=== PATIENT | female | born 1940 | race Caucasian/White ===

== ENCOUNTER 2016-08-06 20:16 | Emergency (ER) ==
[2016-08-06 20:26] VITALS: TEMP 100.4; BMI 28.0
[2016-08-06] MEDS ORDERED: MORPHINE 2 MG/ML SYRINGE IM STA (20:45)
[2016-08-06] MEDS ORDERED: ZOFRAN 4 MG/2 ML IM STA (20:45)
--- NOTE | 2016-08-06 21:40 | CT ---
EXAM: CT of the pelvis without contrast. HISTORY: Left hip pain for 1 week. No known injury. PROCEDURE: Contiguous axial CT images of the pelvis without contrast with coronal and sagittal refo rmats. FINDINGS: The bones are intact with no evidence of fracture. The joint spaces are maintained. Ther e are degenerative changes in the lower lumbar spine. There is diverticulosis of the colon. No dona e fluid or free air in the pelvis. The bladder is adequately filled with no abnormality identified. The uterus is unremarkable. Impression: No evidence of fracture. Degenerative changes in the lumbar spine. Diverticulosis of the colon.
[2016-08-06 22:05] VITALS: BP 160/86
--- NOTE | 2016-08-06 22:06 | ED.PDOC ---
General ED Provider: Dr. MEKA MOON Chief Complaint: Hip Pain/Injury Stated Complaint: Patient states she has had Left lower back / hip pain for one week. Denies any Trauma. Has not been taking Nsaids as prescribed. Does not like how lortab makes her feel. pain is worse with ambualtion. Time Seen by Physician: 20:30 Mode of Arrival: Wheelchair Information Source: Patient, Family Exam Limitations: No limitations Primary Care Provider: DAVID GUTHRIE Nursing and Triage Documentation Reviewed and Agree: Yes Musculoskeletal Complaint Exam - Hip/Pelvis Complaint/Exam Location of Pain: Reports: Left, Hip Mechanism of Injury: Reports: No known trauma Onset/Duration: 1 week Symptoms Are: Still present Initial Severity: Moderate Current Severity: Moderate Location: Reports: Discrete Character: Reports: Throbbing, Spasmodic Aggravating: Reports: Movement, Weight bearing Alleviating: Reports: Rest Associated Signs and Symptoms: Denies: Swelling, Redness, Bruising, Fever, Weakness, Dizziness, Syncope, Abdominal pain, Knee pain Able to Bear Weight: Yes Septic Arthritis Risk Factors: Reports: None Related Surgical History: Reports: Joint Replacement Hip/Pelvis Findings: Absent: Extremity shortened, Swelling, Ecchymosis, Erythema , Warmth Tenderness: Present: Left, Greater Trochanter NV Bundle Intact Distal to Injury: Yes Differential Diagnoses: Arthritis, Sprain, Strain Review of Systems - Review Of Systems Constitutional: Reports: No symptoms Eyes: Reports: No symptoms Ears, Nose, Mouth, Throat: Reports: No symptoms Respiratory: Reports: No symptoms Cardiac: Reports: No symptoms GI: Reports: No symptoms : Denies: Dysuria, Discharge Musculoskeletal: Reports: Back pain, Joint pain Skin: Reports: No symptoms Neurological: Reports: Anxiety Endocrine: Reports: No symptoms Hematologic/Lymphatic: Reports: No symptoms All Other Systems: Reviewed and Negative Past Medical History - Past Medical History Endocrine: Reports: Hypothyroid, Dyslipidemia Cardiovascular: Reports: Unknown Respiratory: Reports: Unknown Hematological: Reports: Unknown Gastrointestinal: Reports: Unknown Genitourinary: Reports: Unknown Neuro/Psych: Reports: Unknown Musculoskeletal: Reports: Arthritis, Joint Pain (CHRONIC KNEE PAIN), Unknown, Other (osteopor) Cancer: Reports: Unknown Last Menstrual Period: NA Other Pertinent Past Medical History: thy chol arth osteopor - Surgical History General Surgical History: Reports: Orthopedic (R,L SHOULDER R WRIST), Other ( HAS STEM CELL CONTACT IN RIGHT EYE, PUT IN ON 10-07-15. DUE TO BE REMOVED ON 10-15) - Family History Family History: Reports: Unknown - Social History Smoking Status: Never smoker Hx Substance Use: No Alcohol Screening: None - Immunizations Tetanus Shot up to Date: No Physical Exam - Physical Exam Appearance: Ill-appearing, Well-nourished Ill-appearing: Mild Pain Distress: Moderate Eyes: CHARITY, EOMI, Conjunctiva clear ENT: Ears normal, Nose normal, Oropharynx normal Neck: Supple Respiratory: Airway patent, Breath sounds clear, Breath sounds equal, Respirations nonlabored Cardiovascular: RRR, Pulses normal, No rub, No murmur GI/: Soft, Nontender, No masses, Bowel sounds normal, No Organomegaly Musculoskeletal: Normal strength, ROM intact, No edema, No calf tenderness Skin: Warm, Dry, Normal color Neurological: Sensation intact, Motor intact, Reflexes intact, Cranial nerves intact, Alert, Oriented Psychiatric: Anxious Interpretation - Radiology Interpretation Radiology Interpretation By: Radiologist Radiology Results: Negative (except lower back arthritis.) Exam Interpreted: CT Scan Critical Care Note - Critical Care Note Total Time (mins): 0 Course - Course Orders, Labs, Meds: Orders Category Date Time Status Morphine Sulfate [Morphine 2 mg/ml Syringe] MEDS 08/06/16 20:45 Discontinued 2 mg IM ONCE STA Ondansetron HCl/Pf [Zofran 4 mg/2 ml] MEDS 08/06/16 20:45 Discontinued 4 mg IM ONCE STA CT PELVIS W/O CONTRAST Stat RADS 08/06/16 20:45 Completed Medications Discontinued Medications Generic Name Dose Route Start Last Admin Trade Name Freq PRN Reason Stop Dose Admin Morphine Sulfate 2 mg 08/06/16 20:45 08/06/16 21:18 Morphine 2 Mg/Ml Syringe IM 08/06/16 20:46 2 mg ONCE STA Administration Ondansetron HCl 4 mg 08/06/16 20:45 08/06/16 21:16 Zofran 4 Mg/2 Ml IM 08/06/16 20:46 4 mg ONCE STA Administration Vital Signs: Temp Pulse Resp BP Pulse Ox 08/06/16 22:05 160/86 H 08/06/16 20:19 100.4 F H 93 H 20 182/76 H 95 Departure - Departure Time of Disposition: 22:08 Disposition: HOME SELF-CARE Discharge Problem: Hip pain, Arthritis Instructions: Arthritis (ED) Condition: Stable Pt referred to PMD for follow-up: Yes Additional Instructions: Take Medications as prescribed Follow up with PCP in 3 days Prescriptions: Tramadol HCl [Ultram] 50 mg PO Q6H PRN #14 tablet PRN Reason: Severe Pain Allergies/Adverse Reactions: Allergies No Known Allergies Allergy (Verified 10/13/15 21:56) Home Medications: Ambulatory Orders Lovastatin [Mevacor] 20 mg PO DAILY 06/13/13 Carboxymethyl/Gly/Poly80/Pf [Refresh Optive Advanced Drops] 1 each OP DIRECTED PRN 10/13/15 Hydrocodone Bit/Acetaminophen [[place] 5-325] 1 - 2 tab PO Q6HR PRN #12 tablet 06/25 Levothyroxine Sodium [Synthroid] 125 mcg PO DAILY 10/13/15 Nabumetone [Relafen] 500 mg PO BIDWM 08/06/16 Tramadol HCl [Ultram] 50 mg PO Q6H PRN #14 tablet 08/06/16 Disposition Discussed With: Patient, Family
== END 2016-08-06 22:37 | disposition home or self-care (01) ==
LOC: ED 20:16
DX: M25.552 Pain in left hip (principal); M54.5 Low back pain; M19.90 Unspecified osteoarthritis, unspecified site
CPT/HCPCS: 96372; 99283

== ENCOUNTER 2016-08-07 16:03 | Outpatient (CLI) ==
[2016-08-06 20:26] VITALS: BMI 28.0
--- NOTE | 2016-08-07 16:45 | DI ---
EXAM: Three views of the lumbar spine HISTORY: Low back pain COMPARISON: None available FINDINGS: There is rotary levoscoliosis of the lumbar spine. For the purposes of this dictation it will be ass umed that the T12 ribs are hypoplastic. The lumbar vertebral bodies are normal in height. There is moderate disc height loss at L2-L3, L4-5 and L5-S1. Mild disc height loss is seen at the other lumb ar levels. Small multilevel anterior osteophytes are seen. There is 4 mm of anterior listhesis at L2 -L3. There is moderate lower lumbar spine facet arthropathy. A 13 mm calcification projects over the right hemiabdomen. Lower ventral abdominal wall suture is seen. IMPRESSION: Lumbar rotary levoscoliosis. Moderate multilevel degenerative disc disease and facet arthropathy. 4 mm anterior listhesis at L2-L3. 13 mm nonspecific right hemiabdomen calcification. This is likely too anterior to represent a renal or ureteral calculus. This could represent a gallstone or other etiology.
== END 2016-08-07 16:04 | disposition home or self-care (01) ==
LOC: RAD 16:03
PROVIDERS: ATTEND Family Medicine
DX: M54.5 Low back pain (principal)

== ENCOUNTER 2016-08-18 07:55 | Outpatient (CLI) ==
--- NOTE | 2016-08-18 09:10 | US ---
EXAM: Abdominal ultrasound limited HISTORY: Abdominal pain in the right upper quadrant COMPARISON: The CT abdomen pelvis 05/16/2013 TECHNIQUE: Sonographic and limited Doppler evaluation of the right upper quadrant was performed. FINDINGS: The liver is mildly increased in echogenicity and measures 11.9 cm. The portal vein is p atent. The gallbladder demonstrates mobile sludge/stones. The gallbladder wall measures 0.25 cm in thickness. Common bile duct is unremarkable and measures 0.4 cm in diameter. The pancreas is not e valuated due to bowel gas. The right kidney measures 9.9 x 4.6 x 3.8 cm with cortical thickness of 1.1 cm. There is no stone or hydronephrosis. IMPRESSION: 1. Layering right mobile gallstones/sludge with no wall thickening or pericholecystic fluid. 2. Mildly increased echogenicity of the liver suggestive of hepatic steatosis.
--- NOTE | 2016-08-18 09:30 | DEXA ---
EXAM: Bone density HISTORY: Postmenopausal female with history of arthritis and family history of osteoporosis COMPARISON: None TECHNIQUE: Digital images of the thoracolumbar spine and hips were provided and calculation of bone density was obtained. FINDINGS: Digital images demonstrate no compression deformities of the thoracolumbar spine. DEXA scan of the lumbar spine is of good quality. The total BMD equals 0.949 grams per square centimeter. T-score is - 1.9 and Z-score of - 0.4 . DEXA of the hips was performed and of good quality. Total bone marrow density of 0.727 grams per square centimeter. T score is - 2.2 and Z-score is - 0.6. IMPRESSION: Bone density of the hips and lumbar spine demonstrate osteopenia of the hips and spine by WHO criteria. FRAX calculation tool demonstrates 10-year major osteoporotic fracture risk of 20.6% and hip fractur e risk of 7.9% T score greater than -1 is normal T score -1 to -2.5 is osteopenia T score less than - 2.5 is osteoporosis
== END 2016-08-18 07:56 | disposition home or self-care (01) ==
LOC: RAD 07:55
PROVIDERS: ATTEND Family Medicine
DX: R10.9 Unspecified abdominal pain (principal); Z78.0 Asymptomatic menopausal state

== ENCOUNTER → 2016-09-09 | Outpatient (RCR) ==
--- NOTE | 2016-08-25 11:50 | RS.OPPTEV2 ---
Date of Note: 08/24/16 Visit #: 1 Date of Evaluation: 08/24/16 Payer Source: MEDICARE Treatment Diagnosis: Low back pain History of Condition/Mechanism of Injury:: Patient reports low back and left LE pain for ~ 2 1/2 weeks. Reports no known injury. Prior Level of Function.....Patient was independent with: ADL's, Self Care, Caregiving, Ambulation/Mobility, Community Integration/Access Functional Limitations: Sleep, Self Care, ADL's, Reaching, Pushing, Pulling, Lifting, Carrying, Sitting, Standing, Bending, Squatting, Ambulation, Community Access/Integration Current Subjective/complaints:: Patient reports pain into the back and LLE. States all positions seem to cause pain. Reports the 3rd and 4th toes of the left foot tingle and she gets numbness at times into the lateral left LE. States she has difficulty sleeping. She cannot lay flat on her back or on the left side. Reports being unable to tolerate any position for too long. Reports being unable to stand as long as she needs to complete ADL's such as washing dishes, cooking, etc. Treatment Side (optional): Bilateral Medical History Medical History: Arthritis Surgical History Comments:: Bilateral TKA 2015 Smoking Status: Former smoker Hx Home Medications: Cholesterol and thyroid medication, Ibuprofen Pain Assessment - Pain Description Pain Location: lumbar spine and left LE Current Pain Intensity: 6/10 Worst Pain Intensity: 9/10 Functional Outcome Measure Oswestry LBP: 54 - G Codes & Severity Modifier G Codes & Modifier: Mobility current cK. Mobility goal CI Source of G Code score: Oswestry LBP scale Observation - Observation Posture: Forward Head, Rounded Shoulders, Decreased Lumbar Lordosis Gait - Gait Pattern Gait Comments: Patient ambulates without an assistive device with a guarded gait. - ROM Lumbar Flexion: Hand reach to patellae Sidebending to Left: Reach to Mid-thigh Sidebending to Right: Reach to Mid-thigh Comments: Discomfort reported with lumbar extension and flexion. Tolerates lumbar extension to ~15-20 degrees beyond neutral. - Strength Trunk Rotation: 4 Good Comments: bilateral LE strength 4+/5. - Special Tests SLR Test: Negative Left, Negative Right Seated Dural Stretch Test: Negative Left, Negative Right SI Joint Compression: Negative Palpation Comments:: Patient reports increased pain with central pressures to the lumbar spinous processes at L3-L5. Reports no specific tenderness with palpation throughout the lumbar paraspinals or over the SI joints. Demonstrates moderate increased muscle tone along the left lumbar paraspinals. Minimal increased tone along the right lumbar paraspinals. Sensation - Sensation Comments: Reports currently having tingling in the 3rd and 4th toes of the left foot, otherwise LE sensation is intact. Additional Comments: Additional Comments: SLR right 45-50 degrees, left 40-45 degrees. - Treatment Comments: Attempted to start US treatment to lumbar paraspinals, but power went out for 15-20 mins and unable to provide treatment. Interventions - Exercise/Activities/Manual Therapy Exercises/Activities: None given today. Manual Therapy: Na HOME EXERCISE PROGRAM: Na - Charges Total Direct Minutes: 45 mins Total Treatment Time: 45 mins Procedures billed for this date of service:: MANDIE Dan Assessment Assessment: Patient presents to therapy with a diagnosis of sciatica. She reports low back and left LE radiating symptoms. She describes difficulty tolerating any position too long. States standing is difficult, especially to perform household ADL's of cooking and washing dishes. She exhibits minimal and moderate muscle guarding along the lumbar paraspinals. She will benefit from modalities and stretching exercises to reduce her symptoms and progress to lumbar/trunk stability exercises. Patient Education: Education of diagnosis, Body/Joint mechanics, Education of Plan of Care Rehab Potential: Good Short Term Goals Goal #1: Patient independent in basic HEP. Goal to be met by: 09/08/16 Goal #2: Muscle tone along lumbar spine decreased to normal. Goal to be met by: 09/08/16 Goal #3: Left LE symptoms localized to the hip/back. Goal to be met by: 09/08/16 Goal #4: Pain at rest <4/10. Goal to be met by: 09/08/16 [employer] Operator Goals Goal #1: Pt knows HEP and to continue ex's to maintain functional level at D/C. Goal to be met by: 10/04/16 Goal #2: Score on Oswestry LBP scale improved to <19% impairment. Goal to be met by: 10/04/16 Goal #3: Pt to tolerate standing as needed to performing cooking/washing dishes. Goal to be met by: 10/04/16 Goal #4: Pt able to sleep 6 hours without interruption from low back pain. Goal to be met by: 10/04/16 Plan - Treatment to be Provided Procedures: Therapeutic Exercises, Therapeutic Activity, Manual Therapy, Patient Education Modalities: Electrical Stimulation, Ultrasound/Phonophoresis, Cryotherapy, Hot Packs - Treatment Plan Frequency: 3 X week Duration: 4 weeks ORDER # VISITS AND/OR THROUGH DATE: 10/04/16 - Treatment Code (1) Low back pain Qualifiers: Chronicity: acute Back pain laterality: unspecified Sciatica presence: with sciatica Sciatica laterality: sciatica of left side Qualified Description: Acute low back pain with left-sided sciatica, unspecified back pain laterality Qualifier Code(s): (M54.42) Lumbago with sciatica, left side
--- NOTE | 2016-08-27 11:06 | RS.OPPTDN ---
Subjective Date of Note: 08/27/16 Visit #: 2 Date of Evaluation: 08/24/16 Payer Source: MEDICARE Treatment Diagnosis: Low back pain Current Subjective/complaints:: Reports the back pain was elevated earler this morning,especially when she first got out of bed. Pain Assessment - Pain Description Pain Location: lumbar spine and left LE Pain Description: Tightness, Radiating, Aching Current Pain Intensity: 8/10 - Treatment Modality: Ultrasound Parameters/Method Applied: 10 mins. @ 1.5 w/cm2,continuous mode to lumbar/L gluteal area. Patient Position: Right Sidelying - Heat/Cryotherapy Treatment: Hot Pack (20 mins. prior to US and manual therapy) Interventions - Exercise/Activities/Manual Therapy Exercises/Activities: None given today due to elevated pain. Total minutes of Exercise: 0 Manual Therapy: 20 mins. deep tissue mobs. to lumbar and L gluteal/piriformis area. Total minutes of Manual Therapy: 20 HOME EXERCISE PROGRAM: Na - Charges Total Direct Minutes: 30 Total Treatment Time: 50 Procedures billed for this date of service:: hp,US,manual therapy Assessment: Patient reports relief during manual therapy and modalities as she is in R sidelying ,but the pain returns gradually as she stands and exits clinic today,with antalgic gait noted.She is tender to palpate the muscle belly of the piriformis . Patient Education: Education of diagnosis, Body/Joint mechanics, Home Exercise Program, Home Safety, Activity Modification, Education of Plan of Care Short Term Goals Goal #1: Patient independent in basic HEP. Goal to be met by: 09/08/16 Goal #2: Muscle tone along lumbar spine decreased to normal. Goal to be met by: 09/08/16 Goal #3: Left LE symptoms localized to the hip/back. Goal to be met by: 09/08/16 Goal #4: Pain at rest <4/10. Goal to be met by: 09/08/16 Prison Goals Goal #1: Pt knows HEP and to continue ex's to maintain functional level at D/C. Goal to be met by: 10/04/16 Goal #2: Score on Oswestry LBP scale improved to <19% impairment. Goal to be met by: 10/04/16 Goal #3: Pt to tolerate standing as needed to performing cooking/washing dishes. Goal to be met by: 10/04/16 Goal #4: Pt able to sleep 6 hours without interruption from low back pain. Goal to be met by: 10/04/16 Plan PLAN OF CARE EXPIRES ON:: 10/04/16 ORDER # VISITS AND/OR THROUGH DATE: 10/04/16 PLAN: Continue Plan of Care
--- NOTE | 2016-08-28 11:17 | RS.OPPTDN ---
Subjective Date of Note: 08/28/16 Visit #: 3 Date of Evaluation: 08/24/16 Payer Source: MEDICARE Treatment Diagnosis: Low back pain Current Subjective/complaints:: Jayna reports approximately two hours relief after last treatment.Her L toes are tingling today ,enters clinic with antalgic gait. Pain Assessment - Pain Description Pain Location: lumbar spine and left LE Pain Description: Radiating, Aching Current Pain Intensity: not rated - Treatment Modality: Electrical Stim Unattended Parameters/Method Applied: 20 mins. high volt to L hip /piriformis region,2 electrodes @ 85 pv. Patient Position: Right Sidelying - Heat/Cryotherapy Treatment: Hot Pack (concurrent with e-stim) Interventions - Exercise/Activities/Manual Therapy Exercises/Activities: 20 mins. total of pelvic tilts,SKTC,DKTC,L piriformis stretches. Total minutes of Exercise: 20 Manual Therapy: N/A Total minutes of Manual Therapy: 0 HOME EXERCISE PROGRAM: Pelvic tilts,SKTC,DKTC,piriformis stretches,90/90 hamstring stretches. - Charges Total Direct Minutes: 20 Total Treatment Time: 40 Procedures billed for this date of service:: hp,e-stim,ex 1 Assessment: Patient has good hamstring extensibility with no increased pain in the lumbar.She does have increased pain with L piriformis stretches.She has good return demo of pelvic tilts and knees to chest. Patient Education: Education of diagnosis, Body/Joint mechanics, Home Exercise Program, Home Safety, Activity Modification, Education of Plan of Care Patient demonstrates compliance with HEP?: Yes Short Term Goals Goal #1: Patient independent in basic HEP. Goal to be met by: 09/08/16 Progress towards Goal:: Progressing Goal #2: Muscle tone along lumbar spine decreased to normal. Goal to be met by: 09/08/16 Progress towards Goal:: Progressing Goal #3: Left LE symptoms localized to the hip/back. Goal to be met by: 09/08/16 Progress towards Goal:: No Change Goal #4: Pain at rest <4/10. Goal to be met by: 09/08/16 [facility] Goals Goal #1: Pt knows HEP and to continue ex's to maintain functional level at D/C. Goal to be met by: 10/04/16 Progress towards goal: Progressing Goal #2: Score on Oswestry LBP scale improved to <19% impairment. Goal to be met by: 10/04/16 Goal #3: Pt to tolerate standing as needed to performing cooking/washing dishes. Goal to be met by: 10/04/16 Goal #4: Pt able to sleep 6 hours without interruption from low back pain. Goal to be met by: 10/04/16 Plan PLAN OF CARE EXPIRES ON:: 10/04/16 ORDER # VISITS AND/OR THROUGH DATE: 10/04/16 PLAN: Continue Plan of Care
--- NOTE | 2016-09-01 11:39 | RS.OPPTDN ---
Subjective Date of Note: 09/01/16 Visit #: 4 Date of Evaluation: 08/24/16 Payer Source: MEDICARE Treatment Diagnosis: Low back pain Current Subjective/complaints:: Reports feeling very tired today,has not been sleeping well.The L LE is numb and tingling today," into my toes." Pain Assessment - Pain Description Pain Location: lumbar spine and left LE Pain Description: Radiating, Aching Current Pain Intensity: 5/10 - Treatment Modality: Electrical Stim Unattended Parameters/Method Applied: 20 mins. high volt to thoracic and lumbar,channel 1 ( thoracic) @ 70 pv.channel 2 (lumbar) @ 60 pv. Patient Position: Right Sidelying - Heat/Cryotherapy Treatment: Hot Pack (concurrent with e-stim) Interventions - Exercise/Activities/Manual Therapy Exercises/Activities: 20 mins. total of pelvic tilts,SKTC,DKTC,hamstring stretches,L piriformis stretches. Total minutes of Exercise: 20 Manual Therapy: N/A Total minutes of Manual Therapy: 0 HOME EXERCISE PROGRAM: Pelvic tilts,SKTC,DKTC,piriformis stretches,90/90 hamstring stretches. - Charges Total Direct Minutes: 20 Total Treatment Time: 40 Procedures billed for this date of service:: hp,e-stim,ex 1 Assessment: Patient is more guarded today with L LE stretches,as she reports increased sciatica present.She does reports relief after treatment today.She is more elevated on the L ASIS today,resulting in leg length discrepancy. Patient Education: Body/Joint mechanics, Home Exercise Program, Home Safety, Activity Modification Patient demonstrates compliance with HEP?: Yes Short Term Goals Goal #1: Patient independent in basic HEP. Goal to be met by: 09/08/16 Progress towards Goal:: Progressing Goal #2: Muscle tone along lumbar spine decreased to normal. Goal to be met by: 09/08/16 Progress towards Goal:: Progressing Goal #3: Left LE symptoms localized to the hip/back. Goal to be met by: 09/08/16 Progress towards Goal:: No Change Goal #4: Pain at rest <4/10. Goal to be met by: 09/08/16 Residential Goals Goal #1: Pt knows HEP and to continue ex's to maintain functional level at D/C. Goal to be met by: 10/04/16 Progress towards goal: Progressing Goal #2: Score on Oswestry LBP scale improved to <19% impairment. Goal to be met by: 10/04/16 Goal #3: Pt to tolerate standing as needed to performing cooking/washing dishes. Goal to be met by: 10/04/16 Goal #4: Pt able to sleep 6 hours without interruption from low back pain. Goal to be met by: 10/04/16 Plan PLAN OF CARE EXPIRES ON:: 10/04/16 ORDER # VISITS AND/OR THROUGH DATE: 10/04/16 PLAN: Continue Plan of Care
--- NOTE | 2016-09-02 16:19 | RS.OPPTDN ---
Subjective Date of Note: 09/02/16 Visit #: 5 Date of Evaluation: 08/24/16 Payer Source: MEDICARE Treatment Diagnosis: Low back pain Current Subjective/complaints:: Reports still not sleeping well,has tingling into her L toes again today. Pain Assessment - Pain Description Pain Location: lumbar spine and left LE Pain Description: Radiating, Aching Current Pain Intensity: 5/10 - Treatment Modality: Electrical Stim Unattended Parameters/Method Applied: 20 mins. e-stim to lumbar,channel 1 @ 80 pv,channel 2 @ 75 pv. Patient Position: Right Sidelying - Heat/Cryotherapy Treatment: Hot Pack (concurrent with e-stim ) Interventions - Exercise/Activities/Manual Therapy Exercises/Activities: 20 mins. total of pelvic tilts,SKTC,DKTC,hamstring stretches,L piriformis stretches.SI muscle energy of resisted hip flexion and resisted knee extension in hooklying . Total minutes of Exercise: 20 Manual Therapy: N/A Total minutes of Manual Therapy: 0 HOME EXERCISE PROGRAM: Pelvic tilts,SKTC,DKTC,piriformis stretches,90/90 hamstring stretches. - Charges Total Direct Minutes: 20 Total Treatment Time: 40 Procedures billed for this date of service:: hp,e-stim,ex 1 Assessment: Patient reports the piriformis stretch does not relieve her sciatica today.She continues to have good hamstring extensibility and lumbar motion present in supine ,but has antalgic gait as she exits clinic.We discussed the anteriolisthesis present in the lumbar spine is most likely causing the sciatica and we will focus on strengthening for stability as she can tolerate. Patient Education: Education of diagnosis, Body/Joint mechanics, Home Exercise Program, Home Safety, Activity Modification, Education of Plan of Care Patient demonstrates compliance with HEP?: Yes Short Term Goals Goal #1: Patient independent in basic HEP. Goal to be met by: 09/08/16 Progress towards Goal:: Progressing Goal #2: Muscle tone along lumbar spine decreased to normal. Goal to be met by: 09/08/16 Progress towards Goal:: Progressing Goal #3: Left LE symptoms localized to the hip/back. Goal to be met by: 09/08/16 (L sciatica) Progress towards Goal:: No Change Goal #4: Pain at rest <4/10. Goal to be met by: 09/08/16 Assisted Goals Goal #1: Pt knows HEP and to continue ex's to maintain functional level at D/C. Goal to be met by: 10/04/16 Progress towards goal: Progressing Goal #2: Score on Oswestry LBP scale improved to <19% impairment. Goal to be met by: 10/04/16 Goal #3: Pt to tolerate standing as needed to performing cooking/washing dishes. Goal to be met by: 10/04/16 Progress towards goal: Progressing Goal #4: Pt able to sleep 6 hours without interruption from low back pain. Goal to be met by: 10/04/16 Plan PLAN OF CARE EXPIRES ON:: 10/04/16 ORDER # VISITS AND/OR THROUGH DATE: 10/04/16 PLAN: Continue Plan of Care
--- NOTE | 2016-09-08 10:59 | RS.OPPTDN ---
Subjective Date of Note: 09/08/16 Visit #: 6 Date of Evaluation: 08/24/16 Payer Source: MEDICARE Treatment Diagnosis: Low back pain Current Subjective/complaints:: Reports most of her pain is in the L hip today, tingling in the L toes. Pain Assessment - Pain Description Pain Location: lumbar spine and left LE Pain Description: Radiating, Aching Current Pain Intensity: 5/10 - Treatment Modality: Electrical Stim Unattended Parameters/Method Applied: 20 mins. high volt,2 large electrodes to L gluteals @ 60 pv. - Heat/Cryotherapy Treatment: Hot Pack (concurrent with e-stim) Interventions - Exercise/Activities/Manual Therapy Exercises/Activities: 20 mins. total of pelvic tilts,SKTC,DKTC,hamstring stretches,L piriformis stretches.SI muscle energy of resisted hip flexion and resisted knee extension in hooklying . Total minutes of Exercise: 20 Manual Therapy: N/A Total minutes of Manual Therapy: 0 HOME EXERCISE PROGRAM: Pelvic tilts,SKTC,DKTC,piriformis stretches,90/90 hamstring stretches. - Charges Total Direct Minutes: 20 Total Treatment Time: 40 Procedures billed for this date of service:: hp,e-stim,ex 1 Assessment: Patient reports relief after,but the duration of relief only lasts dependent upon how long she is on her feet.She also reports changing positions often while sitting for relief. Patient Education: Body/Joint mechanics, Home Exercise Program, Home Safety, Education of Plan of Care Patient demonstrates compliance with HEP?: Yes Short Term Goals Goal #1: Patient independent in basic HEP. Goal to be met by: 09/08/16 Progress towards Goal:: Met Goal #2: Muscle tone along lumbar spine decreased to normal. Goal to be met by: 09/08/16 Progress towards Goal:: Partially Met Goal #3: Left LE symptoms localized to the hip/back. Goal to be met by: 09/08/16 (L sciatica) Progress towards Goal:: No Change Goal #4: Pain at rest <4/10. Goal to be met by: 09/08/16 (averages 5/10) Progress towards Goal:: No Change Assisted Goals Goal #1: Pt knows HEP and to continue ex's to maintain functional level at D/C. Goal to be met by: 10/04/16 Progress towards goal: Partially Met Goal #2: Score on Oswestry LBP scale improved to <19% impairment. Goal to be met by: 10/04/16 Goal #3: Pt to tolerate standing as needed to performing cooking/washing dishes. Goal to be met by: 10/04/16 Progress towards goal: No Change Goal #4: Pt able to sleep 6 hours without interruption from low back pain. Goal to be met by: 10/04/16 Progress towards goal: No Change Plan PLAN OF CARE EXPIRES ON:: 10/04/16 ORDER # VISITS AND/OR THROUGH DATE: 10/04/16 PLAN: Continue Plan of Care
--- NOTE | 2016-09-09 12:01 | RS.OPPTDN ---
Subjective Date of Note: 09/09/16 Visit #: 7 Date of Evaluation: 08/24/16 Payer Source: MEDICARE Treatment Diagnosis: Low back pain Current Subjective/complaints:: Patient is agreeable to D/C plan today as she reports minimal improvement only. Pain Assessment - Pain Description Pain Location: lumbar spine and left LE Pain Description: Radiating, Aching Current Pain Intensity: 4-5/10 - Treatment Modality: Electrical Stim Unattended Parameters/Method Applied: 20 mins. high volt,channel 1 to mid back @ 60 pv, channel 2 to L hip @ 60 pv. Patient Position: Right Sidelying - Heat/Cryotherapy Treatment: Hot Pack (concurrent with e-stim) Interventions - Exercise/Activities/Manual Therapy Exercises/Activities: 20 mins. total of pelvic tilts,SKTC,DKTC,hamstring stretches,LTR,L piriformis stretches.Copies of HEP given today. Total minutes of Exercise: 20 Manual Therapy: N/A Total minutes of Manual Therapy: 0 HOME EXERCISE PROGRAM: Pelvic tilts,SKTC,DKTC,piriformis stretches,90/90 hamstring stretches. - Charges Total Direct Minutes: 20 Total Treatment Time: 40 Procedures billed for this date of service:: hp,e-stim,ex 1 Assessment: Patient has temporary relief only,agrees with D/C plan today.She continues to have L sciatica present.She does have good return demo of HEP , good understanding eeded.of pain control,and protecting the low back as Patient Education: Education of diagnosis, Body/Joint mechanics, Home Exercise Program, Home Safety, Activity Modification, Education of Plan of Care Patient demonstrates compliance with HEP?: Yes Short Term Goals Goal #1: Patient independent in basic HEP. Goal to be met by: 09/08/16 Progress towards Goal:: Met Goal #2: Muscle tone along lumbar spine decreased to normal. Goal to be met by: 09/08/16 Progress towards Goal:: Partially Met Goal #3: Left LE symptoms localized to the hip/back. Goal to be met by: 09/08/16 (L sciatica) Progress towards Goal:: No Change Goal #4: Pain at rest <4/10. Goal to be met by: 09/08/16 (averages 5/10) Progress towards Goal:: No Change Jail Goals Goal #1: Pt knows HEP and to continue ex's to maintain functional level at D/C. Goal to be met by: 10/04/16 Progress towards goal: Met Goal #2: Score on Oswestry LBP scale improved to <19% impairment. Goal to be met by: 10/04/16 (50) Progress towards goal: No Change Goal #3: Pt to tolerate standing as needed to performing cooking/washing dishes. Goal to be met by: 10/04/16 Progress towards goal: No Change Goal #4: Pt able to sleep 6 hours without interruption from low back pain. Goal to be met by: 10/04/16 (2 hours at a time) Progress towards goal: No Change Plan PLAN OF CARE EXPIRES ON:: 10/04/16 ORDER # VISITS AND/OR THROUGH DATE: 10/04/16 PLAN: Plan for Discharge
--- NOTE | 2016-09-22 15:17 | RS.OPPTDC ---
Date of Discharge: 09/09/16 Date of Evaluation: 08/24/16 Number of Visits: 7 Treatment Diagnosis: Low back pain Current Complaints/Gains: Reports feeling slightly better, not no major change in symptoms. Patient agrees with D/C plan today. Patient reports she is going to be having gallbladder surgery this week. Pain Assessment - Pain Description Pain Location: lumbar spine and left LE Pain Description: Radiating, Aching Current Pain Intensity: 4-5/10 Functional Outcome Measure Oswestry LBP: 50 - G Codes & Severity Modifier G Codes & Modifier: MOb goal CI. Mob D/C CK Source of G Code score: Oswesty LBP scale Interventions - Exercise/Activities/Manual Therapy Exercises/Activities: NA Manual Therapy: N/A HOME EXERCISE PROGRAM: Pelvic tilts,SKTC,DKTC,piriformis stretches,90/90 hamstring stretches. - Charges Total Direct Minutes: NA Total Treatment Time: NA Procedures billed for this date of service:: NA Assessment Assessment: patient reports no significant change in symptoms. She agrees with D/C plan as she is having gallbladder surgery this week. Short Term Goals Goal #1: Patient independent in basic HEP. Goal to be met by: 09/08/16 Progress towards Goal:: Met Goal #2: Muscle tone along lumbar spine decreased to normal. Goal to be met by: 09/08/16 Progress towards Goal:: Partially Met Goal #3: Left LE symptoms localized to the hip/back. Goal to be met by: 09/08/16 (L sciatica) Progress towards Goal:: Not Met Goal #4: Pain at rest <4/10. Goal to be met by: 09/08/16 (averages 5/10) Progress towards Goal:: Not Met Longterm Goals Goal #1: Pt knows HEP and to continue ex's to maintain functional level at D/C. Goal to be met by: 10/04/16 Progress towards goal: Met Goal #2: Score on Oswestry LBP scale improved to <19% impairment. Goal to be met by: 10/04/16 (50) Progress towards goal: Not Met Goal #3: Pt to tolerate standing as needed to performing cooking/washing dishes. Goal to be met by: 10/04/16 Progress towards goal: Not Met Goal #4: Pt able to sleep 6 hours without interruption from low back pain. Goal to be met by: 10/04/16 (2 hours at a time) Progress towards goal: Not Met Plan Reason for Discharge:: Lack of Progress
== END ==
PROVIDERS: ATTEND Family Medicine
DX: M54.30 Sciatica, unspecified side (principal)

== ENCOUNTER 2017-06-15 00:01 | Outpatient (POV) | payer OTHER | END 2017-06-15 17:00 | LOC: OUTPT 00:01 | PROVIDERS: ATTEND Otolaryngology | DX: H91.90 Unspecified hearing loss, unspecified ear (principal) ==

== ENCOUNTER 2018-04-20 16:59 | Outpatient (CLI) | payer OTHER ==
--- NOTE | 2018-04-21 07:18 | DI ---
EXAM: Three views of the lumbar spine. History: Lower back pain. Comparison: Lumbar spine radiograph 08/07/2016 Findings: Cholecystectomy clips. No acute fracture of the lumbar spine. No change in the 4 mm ante rolisthesis of L2 on L3. Moderate to severe disc space narrowing at L2-L3, L4-L5 and L5-S1 with endp late sclerosis, osteophyte formation and vacuum disc phenomenon slightly progressed compared to the p rior study. Moderate to severe facet hypertrophy within the lower lumbar spine. Impression: 1. No acute fracture. 2. Progressive degenerative disc disease
== END 2018-04-20 17:00 | disposition home or self-care (01) ==
LOC: RAD 16:59
PROVIDERS: ATTEND Family Medicine
DX: M54.5 Low back pain (principal); R30.0 Dysuria
CPT/HCPCS: 81001; 87086